=== PATIENT | female | born 1995 | race Caucasian/White ===

== ENCOUNTER 2020-11-22 09:48 | Emergency (ER) | payer SELFPAY ==
[~2020-11-22] VITALS: Ht 149.9 cm; Wt 54.1 kg
[2020-11-22 10:04] VITALS: Ht 149.9 cm; Wt 54.1 kg
[2020-11-22 10:44] LABS: BASOPHILS 0.6 % (0-2); EOSINOPHILS 3.9 % (0-7); LYMPHOCYTES 29.5 % (15-50); MCHC 33.4 g/dL (31.0-37.0); MCV 89.9 fL (80.0-100.0); MEAN PLATELET VOLUME 8.1 fL (7.4-10.4); MONOCYTES 6.3 % (2-11); NEUTROPHILS 59.7 % (40-80); PLATELET COUNT 292 10x3/uL (130-400); RBC 5.01 10x6/uL (4.00-5.40); RDW 14.2 % (11.5-14.5); WBC 10.2 10x3/uL (4.8-10.8)
[2020-11-22 10:52] LABS: CALC OSMOLALITY 283 mosm/kg (275-300); CALCIUM 9.6 mg/dL (8.5-10.1); CARBON DIOXIDE 26.1 mmol/L (21.0-32.0); CHLORIDE - SERUM 105 mmol/L (98-107); CREATININE - SERUM 0.6 mg/dL (0.6-1.3); GLUCOSE 99 mg/dL (74-106); POTASSIUM - SERUM 3.9 mmol/L (3.5-5.1); SODIUM 142 mmol/L (136-145); UREA NITROGEN 14 mg/dL (7-18); eGFR NON AFRICAN AMERICAN > 90 mL/min (90-120)
[2020-11-22 10:58] LABS: ALBUMIN 4.5 g/dL (3.4-5.0); ALKALINE PHOSPHATASE 78 U/L (30-120); ALT (SGPT) 25 U/L (10-68); BILIRUBIN - TOTAL 0.58 mg/dL (0.2-1.3); PROTEIN - SERUM 8.7 g/dL (6.4-8.2)
[2020-11-22 11:36] LABS: BACTERIA FEW HPF (<MOD); BILIRUBIN NEGATIVE (NEGATIVE); KETONE NEGATIVE mg/dL (< 1+); NITRITE NEGATIVE (NEGATIVE); SQUAMOUS EPITHELIAL 6 HPF (0-4); UROBILINOGEN 2 mg/dL (< 2); WHITE CELLS - URINE 9 HPF (0-4)
[2020-11-22 12:21] LABS: HCG URINE NEGATIVE (NEGATIVE)
[2020-11-22] MEDS ORDERED: CYCLOBENZAPRINE10 MG PO (13:15)
[2020-11-22] MEDS ORDERED: TORADOL10 MG PO (13:15)
[2020-11-22 13:37] VITALS: BP 122/80
== END 2020-11-22 13:38 | disposition home or self-care (01) ==
LOC: D.ER 09:48
PROVIDERS: Family Medicine
DX: N93.8 Other specified abnormal uterine and vaginal bleeding (principal); R10.9 Unspecified abdominal pain